=== PATIENT | male | born 1960 | race African-American/Black ===

== ENCOUNTER 2018-09-11 13:35 | Emergency (ER) | payer OTHER ==
[2018-09-11 13:46] VITALS: BMI 26.4
--- NOTE | 2018-09-11 14:01 | PDOC ---
History of Present Illness - General Chief Complaint: Blood Sugar Problem Stated Complaint: Blood Sugar Problem Time Seen by Provider: 09/11/18 13:52 - History of Present Illness Initial Comments: 09/11/18 14:06 The patient is a 58 year old male with a history of HTN, HLD, Prostate CA, Pre- diabetes who presents for evaluation of tingling. The patient notes worsening tingling in his feet and toes over the past few months when eating sugary foods. He states he was concerned that his blood sugars have been high as he is pre-diabetic prompting his presentation to the ED for further evaluation. He otherwise denies fevers, chills, SOB, chest pain, nausea, vomiting, abdominal pain, increased thirst, increased urination, or changes with urination or bowel movements. Past History - Past Medical History Allergies/Adverse Reactions: Allergies Allergy/AdvReac Type Severity Reaction Status Date / Time No Known Allergies Allergy Verified 09/11/18 13:40 Home Medications: Ambulatory Orders Aspirin [ASA -] 81 mg PO DAILY 12/02/12 [place]-3 Acid Ethyl Esters [Lovaza -] 1,000 mg PO BID 03/07/14 Cholecalciferol (Vitamin D3) [D-2000] 1,000 unit PO DAILY 02/12/15 Folic Acid/Mv,Fe,Min [Centrum Multivitamin Tab Chew] 1 each PO DAILY 02/12/15 Ranitidine [Zantac -] 300 mg PO BID PRN 02/12/15 Atorvastatin Calcium 80 mg PO HS 09/11/18 Metoprolol Succinate [Toprol Xl] 50 mg PO DAILY 09/11/18 Cancer: Yes (prostate (rad tx)) Cardiac Disorders: Yes (STENTS X 3) COPD: No Diabetes: Yes (pre diabetic) HTN: Yes Hypercholesterolemia: Yes - Surgical History Cardiac Surgery: Yes (STENTS X 3// OHS 2 vessels) - Suicide/Smoking/Psychosocial Hx Smoking Status: Yes Smoking History: Former smoker Have you smoked in the past 12 months: No Number of Cigarettes Smoked Daily: 10 If you are a former smoker, when did you quit?: 12/2013 Information on smoking cessation initiated: No Hx Alcohol Use: No Review of Systems - Review of Systems Comments:: 09/11/18 14:09 Constitutional: No fevers, chills, fatigue, malaise HEENT: No Rhinorrhea, nasal congestion, visual changes Cardiovascular: No chest pain, syncope, palpitations, lightheadedness Respiratory: No Cough, SOB, Hemoptysis, Gastrointestinal: No Abdominal pain, Nausea, Vomiting, Constipation, Diarrhea, Melena Genitourinary: No Dysuria, Frequency, Urgency, Hesitancy, Hematuria, Flank pain Musculoskeletal: No Myalgia, arthralgia Skin: No rashes, itching, bruising, pallor Neurologic: Tingling. No Headache, Dizziness, Numbness, Weakness, Psychiatric: No Hallucinations. No SI or HI *Physical Exam - Vital Signs Last Vital Signs Temp Pulse Resp BP Pulse Ox 98 F 64 16 110/65 99 09/11/18 13:44 09/11/18 13:44 09/11/18 13:44 09/11/18 13:44 09/11/18 13:44 - Physical Exam Comments: 09/11/18 14:09 General Appearance: Nourished. No Apparent Distress HEENT: EOMI, LIZ. No Pharyngeal Erythema, Tonsillar Exudate, Tonsillar Erythema Neck: No Cervical Lymphadenopathy Respiratory/Chest: Lungs Clear, Normal Breath Sounds. No Crackles, Rales, Rhonchi, Wheezing Cardiovascular: Regular Rhythm, Regular Rate. No Murmur, Gallops, Rubs Gastrointestinal/Abdominal: Normal Bowel Sounds, Soft. No Guarding, Rebound, Tenderness Musculoskeletal: No CVA Tenderness Extremity: Normal Capillary Refill Integumentary: Normal Color, Dry, Warm Neurologic: mechanical manager II-XII NML intact, Fully Oriented, Alert, Normal Mood/Affect, Normal Response, Motor Strength 5/5. ED Treatment Course - LABORATORY CBC & Chemistry Diagram: 09/11/18 14:10 09/11/18 14:10 Medical Decision Making - Medical Decision Making 09/11/18 14:10 The patient is a 58 year old male with a history of HTN, HLD, Prostate CA, Pre- diabetes who presents for evaluation of tingling. Given the patient's history and physical exam, we will obtain a cbc, cmp, ua, to evaluate further. Given the patient's normal physical exam and length of his symptoms, it is unlikely that an acute process is occurring. We will continue to monitor and reassess while here in the ED. 09/11/18 15:17 CBC, cmp, ua are unremarkable. The patient continues to appear well on exam. We are comfortable with discharging the patient home with primary care provider follow up. We discussed the results, plan, and return precautions with the patient who voiced understanding and is agreeable with the plan. *DC/Admit/Observation/Transfer Diagnosis at time of Disposition: Tingling of both feet - Discharge Dispostion Disposition: HOME Condition at time of disposition: Stable Decision to Admit order: No - Referrals Referrals: Ben Conn MD [Primary Care Provider] - - Patient Instructions Printed Discharge Instructions: DI for Hyperglycemia -- Adult Additional Instructions: Please return to the ER if you experience concerning or worsening symptoms including worsening difficulty breathing, weakness, or chest pain. Your lab results were normal here in the ER. Please call to schedule a follow up appointment with your primary care provider within 2-3 days to discuss your ER visit and further management of your symptoms. - Post Discharge Activity
[2018-09-11 14:55] LABS: URINE APPEARANCE CLEAR; URINE BILIRUBIN NEGATIVE (<2.0 mg/dL); URINE COLOR LTYELLOW; URINE GLUCOSE (UA) NEGATIVE (NEGATIVE); URINE KETONE NEGATIVE (NEGATIVE); URINE LEUK ESTERASE NEGATIVE (NEGATIVE); URINE NITRITE NEGATIVE (NEGATIVE); URINE PROTEIN NEGATIVE (NEGATIVE); URINE UROBILINOGEN NEGATIVE mg/dL (0.2-1.0)
[2018-09-11 14:55] LABS: BASO % 0.6 % (0-2.0); EOS % 1.7 % (0-4.5); HEMATOCRIT 41.9 % (35.4-49); HEMOGLOBIN 13.4 GM/dL (11.7-16.9); LYMPH % 27.8 % (8-40); MCH 27.5 pg (25.7-33.7); MEAN CELL VOLUME 86.1 fl (80-96); MEAN PLT VOLUME 7.4 fl (7.5-11.1); MONO % 9.3 % (3.8-10.2); NEUT % 60.6 % (42.8-82.8); PLATELET COUNT 189 K/MM3 (134-434); RBC 4.86 M/mm3 (4.00-5.60); RDW 13.3 % (11.9-15.9); WHITE BLOOD COUNT 5.7 K/mm3 (4.0-10.0)
[2018-09-11 15:09] LABS: ALBUMIN 3.7 g/dl (3.4-5.0); ALK PHOS 89 U/L (45-117); ANION GAP 7 MMOL/L (8-16); BILIRUBIN,TOTAL 0.5 mg/dL (0.2-1); BLOOD UREA NITROGEN 15 mg/dL (7-18); CALCIUM 9.1 mg/dL (8.5-10.1); CHLORIDE 107 mmol/L (98-107); CO2 25 mmol/L (21-32); CREATININE 0.7 mg/dL (0.55-1.3); GLUCOSE,RANDOM 92 mg/dL (74-106); POTASSIUM 4.4 mmol/L (3.5-5.1); SGOT/AST 45 U/L (15-37); SGPT/ALT 40 U/L (13-61); SODIUM 139 mmol/L (136-145); TOT PROT 7.4 g/dl (6.4-8.2)
--- NOTE | 2018-09-11 15:34 | PDOC ---
Attending Attestation - Resident Resident Name: Tunde Matthews - ED Attending Attestation I have performed the following: I have examined & evaluated the patient, The case was reviewed & discussed with the resident, I agree w/resident's findings & plan - HPI HPI: 09/11/18 15:33 Todd Ordaz 54 year old male with a h/o hyperlipidemia, HTN and CAD, DM2, prostate ca presenting with tingling in toes x 2 weeks. Patient reports both of his toes are tingling, but the left lower extremity is worse. Patient notes the tingling begins shortly after eating sugary food. Patient is concerned about his A1C as he had similar symptoms in the past when his A1C was elevated. No trauma. The patient denies chest pain, shortness of breath, headache and dizziness. Denies fever, chills, nausea, vomit, diarrhea and constipation. Denies dysuria, frequency, urgency and hematuria. Allergies: NKA Past surgical history: None reported. Social history: No reported alcohol, drug, or cigarette use. - Physicial Exam PE: 09/11/18 15:34 NAD, well appearing, MMM, nl conjunctiva, anicteric; neck supple. lungs clear, RRR, abdomen soft nontender. GALINDO x4, no focal neuro deficits. No peripheral edema. normal color for ethnicity, WWP. gait stable. - Medical Decision Making 09/11/18 15:32 Vital signs reviewed, wnl. Prior notes reviewed, including admissions, discharges and consultations. laboratory results and imaging reviewed, basic labs and lytes wnl, including normal glucose. UA_normal, no ketones or proteins. ED course: no acute events, remained stable and well appearing. gait stable, no neuro deficits or abnormalities. Discharge: Pt to be discharged in stable condition. Patient and family made aware of impression and plan, return precautions discussed (including but not limited to worsening pain or symptoms), fevers, or signs of infection, chest pain, respiratory distress, inability to tolerate oral intake, dehydration, syncope, or neurologic changes). Follow up with PMD and/or specialist as recommended, follow up information provided, take medications as instructed for duration of time. continue with supportive care, avoid triggers and precipitants. All questions answered to patient's satisfaction and expressed understanding and comfort with this.
[2018-09-11 15:41] VITALS: BP 110/64; PULSE 66; TEMP 98.2
== END 2018-09-11 15:42 | disposition home or self-care (01) ==
LOC: EDBD → JER 13:35
DX: R20.2 Paresthesia of skin (principal); I25.10 Atherosclerotic heart disease of native coronary artery without angina pectoris; I10 Essential (primary) hypertension; Z95.5 Presence of coronary angioplasty implant and graft; E78.5 Hyperlipidemia, unspecified; R73.03 Prediabetes; Z85.46 Personal history of malignant neoplasm of prostate; Z87.891 Personal history of nicotine dependence
CPT/HCPCS: 36415; 80053; 81003; 82962; 85025; 99282-25

== ENCOUNTER 2018-10-10 15:51 | Observation (INO) | payer OTHER ==
[2018-10-10 15:57] VITALS: BMI 28.3
--- NOTE | 2018-10-10 16:01 | PDOC ---
History of Present Illness - General Chief Complaint: Chest Pain Stated Complaint: SOB Time Seen by Provider: 10/10/18 16:00 - History of Present Illness Initial Comments: 10/10/18 16:49 The patient is a 58 year old male with a history of HTN, HLD, Pre-Diabetes, [place] s /p stenting and CABG who presents for evaluation of shortness of breath. The patient reports a 2 week history of worsening shortness of breath on exertion. The patient notes that over the past few days his symptoms have worsened where he is unable to walk up a flight of stairs without becoming short of breath which is unusual for him prompting his presentation to the ED for further evaluation. He otherwise denies fevers, chills, chest pain, nausea, vomiting, abdominal pain, or changes with urination or bowel movements. Past History - Past Medical History Allergies/Adverse Reactions: Allergies Allergy/AdvReac Type Severity Reaction Status Date / Time No Known Allergies Allergy Verified 10/10/18 15:57 Home Medications: Ambulatory Orders Aspirin [ASA -] 81 mg PO DAILY 12/02/12 [place]-3 Acid Ethyl Esters [Lovaza -] 1,000 mg PO BID 03/07/14 Cholecalciferol (Vitamin D3) [D-2000] 1,000 unit PO DAILY 02/12/15 Folic Acid/Mv,Fe,Min [Centrum Multivitamin Tab Chew] 1 each PO DAILY 02/12/15 Ranitidine [Zantac -] 300 mg PO BID PRN 02/12/15 Atorvastatin Calcium 80 mg PO HS 09/11/18 Metoprolol Succinate [Toprol Xl] 50 mg PO DAILY 09/11/18 Silodosin [Rapaflo] 8 mg PO HS 10/10/18 Cancer: Yes (prostate (rad tx)) Cardiac Disorders: Yes (STENTS X 3) COPD: No Diabetes: Yes (pre diabetic) HTN: Yes Hypercholesterolemia: Yes - Surgical History Cardiac Surgery: Yes (STENTS X 3// OHS 2 vessels) - Immunization History Immunization Up to Date: Yes - Suicide/Smoking/Psychosocial Hx Smoking Status: Yes Smoking History: Former smoker Have you smoked in the past 12 months: No Number of Cigarettes Smoked Daily: 10 If you are a former smoker, when did you quit?: 4 years ago Information on smoking cessation initiated: No Hx Alcohol Use: No Drug/Substance Use Hx: No Substance Use Type: None Review of Systems - Review of Systems Comments:: 10/10/18 17:02 Constitutional: No fevers, chills, fatigue, malaise HEENT: No Rhinorrhea, nasal congestion, visual changes Cardiovascular: No chest pain, syncope, palpitations, lightheadedness Respiratory: SOB. Dyspnea on exertion. No Cough, Hemoptysis, Gastrointestinal: No Abdominal pain, Nausea, Vomiting, Constipation, Diarrhea, Melena Genitourinary: No Dysuria, Frequency, Urgency, Hesitancy, Hematuria, Flank pain Musculoskeletal: No Myalgia, arthralgia Skin: No rashes, itching, bruising, pallor Neurologic: No Headache, Dizziness, Numbness, Weakness, or Tingling Psychiatric: No Hallucinations. No SI or HI *Physical Exam - Vital Signs Last Vital Signs Temp Pulse Resp BP Pulse Ox 98.0 F 86 16 118/85 96 10/10/18 15:55 10/10/18 15:55 10/10/18 15:55 10/10/18 15:55 10/10/18 15:55 - Physical Exam Comments: 10/10/18 17:03 General Appearance: Nourished. No Apparent Distress HEENT: No Pharyngeal Erythema, Tonsillar Exudate, Tonsillar Erythema Neck: No Cervical Lymphadenopathy Respiratory/Chest: Lungs Clear, Normal Breath Sounds. No Crackles, Rales, Rhonchi, Wheezing Cardiovascular: Regular Rhythm, Regular Rate. No Murmur, Gallops, Rubs Gastrointestinal/Abdominal: Normal Bowel Sounds, Soft. No Guarding, Rebound, Tenderness Musculoskeletal: No CVA Tenderness Extremity: Normal Capillary Refill Integumentary: Normal Color, Dry, Warm Neurologic: Fully Oriented, Alert, Normal Mood/Affect, Normal Response, Heart Score/ECG Review - History History: Moderately suspicious - Electrocardiogram EKG: Normal - Age Age: 45-65 - Risk Factors Risk Factors Heart Score: Yes Hx Hypercholesterolemia, Yes Hx Hypertension, Yes Positive family hx of cardiac disease Based on the list above the patient has:: >/=3 risk factors or Hx atherosclerotic disease - Troponin Troponin: </= normal limit - Score Heart Score - Total: 4 #1 ECG reviewed & interpreted by me at: 17:03 General ECG Interpretation: Sinus Rhythm, Normal Rate, Normal Intervals, No acute ischemic changes ED Treatment Course - LABORATORY CBC & Chemistry Diagram: 10/10/18 16:35 10/10/18 16:35 Medical Decision Making - Medical Decision Making 10/10/18 17:04 The patient is a 58 year old male with a history of HTN, HLD, Pre-Diabetes, [place] s /p stenting and CABG who presents for evaluation of shortness of breath. Differential includes but is not limited to: ACS, Arrhythmia, Pneumonia, CHF, infectious, metabolic derangement. Given the patient's history and physical exam, we will obtain a cbc, cmp, troponin, bnp, ekg, chest pain to evaluate further. We will continue to monitor and reassess while here in the ED. 10/10/18 18:57 CBC, cmp, troponin, bnp are unremarkable. Chest plain film is unremarkable. Given the patient's cardiac risk factors and new symptoms, we believe he requires observation admission for further monitoring. We discussed the case with Cardiology who have been made aware and will evaluate the patient tomorrow. We discussed the case with the admitting team who accepted the patient for admission. *DC/Admit/Observation/Transfer Diagnosis at time of Disposition: Shortness of breath, Dyspnea on exertion - Discharge Dispostion Condition at time of disposition: Stable Decision to Admit order: Yes - Referrals Referrals: Ben Conn MD [Primary Care Provider] - - Patient Instructions - Post Discharge Activity
--- NOTE | 2018-10-10 16:40 | PDOC ---
Attending Attestation - HPI HPI: 10/10/18 16:56 The patient is a 58 year old male with a significant PMH of hyperlipidemia, hypertension. CAD(3 stents) , [place], diabetes, and prostate ca who presents to the emergency department with chest pain for 2 weeks. The patient reports associated worsening shortness of breath with is chest pain. The patient reports that he felt an onset today when he was walking up some steps today. The patient has normal sinus rhythm of 81. The patient denies any other symptoms or complaints. PCP:Dr. Phan Documentation prepared by Elvia Dumas, acting as associate medical director for Jessica Capone MD. <Elvia Dumas - Last Filed: 10/10/18 16:56> - Physicial Exam PE: 10/10/18 19:16 GENERAL: Well developed, well nourished. Awake and alert. No acute distress. HEENT: Normocephalic, atraumatic. PERRLA, EOMI. No conjunctival pallor. Sclera are non- icteric. Moist mucous membranes. Oropharynx is clear. NECK: Supple. Full ROM. No JVD. Carotid pulses 2+ and symmetric, without bruits. No thyromegaly. No lymphadenopathy. CARDIOVASCULAR: Regular rate and rhythm. No murmurs, rubs, or gallops. Distal pulses are 2+ and symmetric. PULMONARY: No evidence of respiratory distress. Lungs clear to auscultation bilaterally. No wheezing, rales or rhonchi. ABDOMINAL: Soft. Non-tender. Non-distended. No rebound or guarding. No organomegaly. Normoactive bowel sounds. MUSCULOSKELETAL Normal range of motion at all joints. No bony deformities or tenderness. No CVA tenderness. EXTREMITIES: No cyanosis. No clubbing. No edema. No calf tenderness. SKIN: Warm and dry. Normal capillary refill. No rashes. No jaundice. NEUROLOGICAL: Alert, awake, appropriate. Cranial nerves 2-12 intact. Cooperative. Good eye contact. Appropriate mood and affect. Documentation prepared by Jessica Calero, acting as associate medical director for Jessica Capone MD. <Jessica Calero - Last Filed: 10/10/18 19:16> - Resident Resident Name: Tunde Matthews - ED Attending Attestation I have performed the following: I have examined & evaluated the patient, The case was reviewed & discussed with the resident, I agree w/resident's findings & plan, Exceptions are as noted - Medical Decision Making 10/10/18 21:15 pt admitted to telemetry for repeat trop and cards consult <Jessica Capone - Last Filed: 10/10/18 21:26>
[2018-10-10 16:43] LABS: BASO % 0.6 % (0-2.0); EOS % 2.2 % (0-4.5); HEMATOCRIT 40.3 % (35.4-49); HEMOGLOBIN 13.5 GM/dL (11.7-16.9); LYMPH % 20.1 % (8-40); MCH 28.4 pg (25.7-33.7); MCHC 33.4 g/dl (32.0-35.9); MEAN PLT VOLUME 7.4 fl (7.5-11.1); MONO % 12.4 % (3.8-10.2); NEUT % 64.7 % (42.8-82.8); PLATELET COUNT 222 K/MM3 (134-434); RBC 4.74 M/mm3 (4.00-5.60); RDW 13.3 % (11.9-15.9); WHITE BLOOD COUNT 5.2 K/mm3 (4.0-10.0)
[2018-10-10 17:06] LABS: ALBUMIN 3.6 g/dl (3.4-5.0); ALK PHOS 105 U/L (45-117); ANION GAP 8 MMOL/L (8-16); BILIRUBIN,TOTAL 0.4 mg/dL (0.2-1); BLOOD UREA NITROGEN 11 mg/dL (7-18); CHLORIDE 108 mmol/L (98-107); CO2 25 mmol/L (21-32); CREATININE 1.1 mg/dL (0.55-1.3); GLUCOSE,RANDOM 96 mg/dL (74-106); N-TERMINAL BNP 34.1 pg/ml (5-125); POTASSIUM 3.9 mmol/L (3.5-5.1); SGOT/AST 22 U/L (15-37); SGPT/ALT 34 U/L (13-61); SODIUM 142 mmol/L (136-145); TOT PROT 7.2 g/dl (6.4-8.2)
[2018-10-10] MEDS ORDERED: ACETAMINOPHEN 325 MG TABLET (FP) PO PRN (18:08)
--- NOTE | 2018-10-10 18:17 | HP ---
Admitting History and Physical - Primary Care Physician PCP: Ben Conn - Admission Chief Complaint: I'm short of breath History of Present Illness: Mr Ordaz is a pleasant 58 year old male who comes in with dyspnea on exertion. He began to notice it about 2 weeks ago and it has steadily progressed. He says over the past 2-3 days he will take only a few steps before becoming short of breath. He has diaphoresis associated with it. He also has minimal lightheadedness. He denies fevers, chills, passing out, chest pain or pressure, fluttering, palpitations, shortness of breath at rest, cough, nausea, vomiting, abdominal pain, diarrhea, constipation, difficulty or pain on urination, or swelling. History Source: Patient Limitations to Obtaining History: No Limitations - Past Medical History Cardiovascular: Yes: CAD, Hyperlipdemia Renal/: Yes: Cancer (prostate) - Past Surgical History Past Surgical History: Yes: CABG - Smoking History Smoking history: Former smoker Have you smoked in the past 12 months: No Aproximately how many cigarettes per day: 10 If you are a former smoker, when did you quit?: 4 years ago - Alcohol/Substance Use Hx Alcohol Use: No History of Substance Use: reports: None - Social History ADL: Independent History of Recent Travel: No Home Medications - Allergies Allergies/Adverse Reactions: Allergies Allergy/AdvReac Type Severity Reaction Status Date / Time No Known Allergies Allergy Verified 10/10/18 15:57 - Home Medications Home Medications: Ambulatory Orders Aspirin [ASA -] 81 mg PO DAILY 12/02/12 [place]-3 Acid Ethyl Esters [Lovaza -] 1,000 mg PO BID 03/07/14 Cholecalciferol (Vitamin D3) [D-2000] 1,000 unit PO DAILY 02/12/15 Folic Acid/Mv,Fe,Min [Centrum Multivitamin Tab Chew] 1 each PO DAILY 02/12/15 Ranitidine [Zantac -] 300 mg PO BID PRN 02/12/15 Atorvastatin Calcium 80 mg PO HS 09/11/18 Metoprolol Succinate [Toprol Xl] 50 mg PO DAILY 09/11/18 Silodosin [Rapaflo] 8 mg PO HS 10/10/18 Family Disease History - Family Disease History Family Disease History: Diabetes: Brother, CA: Brother Review of Systems Findings/Remarks: Full review of systems obtained, as per HPI and otherwise negative Physical Examination Vital Signs: Vital Signs Temperature 36.7 C 10/10/18 15:55 Pulse Rate 86 10/10/18 15:55 Respiratory Rate 16 10/10/18 15:55 Blood Pressure 118/85 10/10/18 15:55 O2 Sat by Pulse Oximetry (%) 96 10/10/18 16:04 Constitutional: Yes: Well Nourished, No Distress, Calm Eyes: Yes: Conjunctiva Clear, EOM Intact, PERRL HENT: Yes: Atraumatic, Normocephalic Cardiovascular: Yes: Regular Rate and Rhythm. No: Gallop, Murmur, Rub Respiratory: Yes: Regular, CTA Bilaterally. No: Rales, Rhonchi, Wheezes Gastrointestinal: Yes: Normal Bowel Sounds, Soft. No: Distention, Tenderness Extremities: Yes: WNL Edema: No Labs: CBC, BMP 10/10/18 16:35 10/10/18 16:35 Imaging - Results Chest X-ray: Report Reviewed, Image Reviewed EKG: Image Reviewed Problem List - Problems (1) Dyspnea on exertion Assessment/Plan: -unclear source as work up currently normal -admit to telemetry observation -monitor rhythm with activity -cardiac enzymes x3 for possible anginal equivalent -no wheezing or lung sounds to suggest lung pathology -check d-dimer -if positive, CTA chest -consult cardiology and pulmonary -last ECHO 6 months ago, defer to cardiology if needs repeat but no signs of fluid retention Code(s): R06.09 - OTHER FORMS OF DYSPNEA (2) CAD (coronary artery disease) Assessment/Plan: -continue metoprolol -continue aspirin -continue atorvastatin Code(s): I25.10 - ATHSCL HEART DISEASE OF [place] CORONARY ARTERY W/O ANG PCTRS (3) HLD (hyperlipidemia) Assessment/Plan: -continue atorvastatin Code(s): E78.5 - HYPERLIPIDEMIA, UNSPECIFIED Assessment/Plan Dispo -plan for discharge tomorrow
--- NOTE | 2018-10-10 18:46 | CON.CARD ---
Consult Consult Specialty:: Cardiology - History of Present Illness Chief Complaint: cp/palpitations History of Present Illness: The patient is a 58 year old male with a significant PMH of hyperlipidemia, hypertension. CAD(3 stents), CABG , [place], diabetes, and prostate ca who presents to the emergency department with chest pain for 2 weeks. The patient reports associated worsening shortness of breath with is chest pain. The patient reports that he felt an onset today when he was walking up some steps today. The patient has normal sinus rhythm of 81. The patient denies any other symptoms or complaints. PMH Prostate CA diagnosed 2018 "mild COPD"/"mild" asthma (sees Dr. Ocasio) CAD (? s/p septal and apical [place]): mid-LCx and distal RCA stents 09/28; mid- LCx JEREMIAH 02/15/09 S/p CABG 09/08/2016 chronic Rt knee and hip pain GERD HTN hx [place] Spotted Fever several years ago (treated) hyperlipidemia Mild-moderate bilateral carotid artery diffuse intimal thickening (01/29) ECHO January 2018 1. The left ventricular size is normal. 2. Overall left ventricular systolic function is normal with, an EF between 60 - 65 %. 3. Mitral Doppler inflow pattern suggests diastolic filling abnormality. 4. Septal wall motion is delayed and consistent with prior cardiac surgery. 5. Mild septal hypertrophy. 6. The left atrium is moderately dilated. 7. The right atrium is moderately enlarged. 8. Aortic valve is trileaflet and is moderately calcified. 9. There is moderate aortic regurgitation. 10. The mitral valve leaflets are mildly thickened. 11. Moderate mitral regurgitation is present. 12. Moderate tricuspid regurgitation presen with a right ventricle systolic pressure of 32 mmHg, indicative of mild pulmonary hypertension. 13. Trace pulmonic valve regurgitation. - Past Medical History Cardio/Vascular: Yes: CAD, Hyperlipdemia Renal/: Yes: Cancer (prostate) - Past Surgical History Past Surgical History: Yes: CABG - Alcohol/Substance Use Hx Alcohol Use: No History of Substance Use: reports: None - Smoking History Smoking history: Former smoker Have you smoked in the past 12 months: No Aproximately how many cigarettes per day: 10 If you are a former smoker, when did you quit?: 4 years ago - Social History ADL: Independent History of Recent Travel: No Home Medications - Allergies Allergies/Adverse Reactions: Allergies Allergy/AdvReac Type Severity Reaction Status Date / Time No Known Allergies Allergy Verified 10/10/18 15:57 - Home Medications Home Medications: Ambulatory Orders Aspirin [ASA -] 81 mg PO DAILY 12/02/12 [place]-3 Acid Ethyl Esters [Lovaza -] 1,000 mg PO BID 03/07/14 Cholecalciferol (Vitamin D3) [D-2000] 1,000 unit PO DAILY 02/12/15 Folic Acid/Mv,Fe,Min [Centrum Multivitamin Tab Chew] 1 each PO DAILY 02/12/15 Ranitidine [Zantac -] 300 mg PO BID PRN 02/12/15 Atorvastatin Calcium 80 mg PO HS 09/11/18 Metoprolol Succinate [Toprol Xl] 50 mg PO DAILY 09/11/18 Silodosin [Rapaflo] 8 mg PO HS 10/10/18 Family Disease History - Family Disease History Family Disease History: Diabetes: Brother, CA: Brother Review of Systems - Review of Systems Constitutional: reports: No Symptoms Eyes: reports: No Symptoms HENT: reports: No Symptoms Neck: reports: No Symptoms Cardiovascular: reports: Chest Pain, Palpitations Gastrointestinal: reports: No Symptoms Genitourinary: reports: No Symptoms Breasts: reports: No Symptoms Reported Musculoskeletal: reports: No Symptoms Integumentary: reports: No Symptoms Neurological: reports: No Symptoms Endocrine: reports: No Symptoms Hematology/Lymphatic: reports: No Symptoms Psychiatric: reports: No Symptoms Vital Signs: Vital Signs Temperature 98.0 F 10/10/18 15:55 Pulse Rate 86 10/10/18 15:55 Respiratory Rate 16 10/10/18 15:55 Blood Pressure 118/85 10/10/18 15:55 O2 Sat by Pulse Oximetry (%) 96 10/10/18 16:04 Constitutional: Yes: Well Nourished, No Distress, Calm Eyes: Yes: WNL, Conjunctiva Clear, EOM Intact HENT: Yes: WNL, Atraumatic, Normocephalic Neck: Yes: WNL, Supple, Trachea Midline Respiratory: Yes: WNL, Regular, CTA Bilaterally Gastrointestinal: Yes: WNL, Normal Bowel Sounds Renal/: Yes: WNL Cardiovascular: Yes: WNL, Regular Rate and Rhythm Musculoskeletal: Yes: WNL Extremities: Yes: WNL Integumentary: Yes: WNL Neurological: Yes: WNL, Alert, Oriented ...Motor Strength: WNL Psychiatric: Yes: WNL, Alert, Oriented - Other Data Labs, Other Data: CBC, BMP 10/10/18 16:35 10/10/18 16:35 Troponin, BNP 10/10/18 16:35 Troponin I < 0.02 B-Natriuretic Peptide 34.1 Troponin, BNP 10/10/18 16:35 Troponin I < 0.02 B-Natriuretic Peptide 34.1 Imaging - Results Chest X-ray: Image Reviewed (s/p OHS no i/e) EKG: Image Reviewed (sr wnl) Problem List - Problems (1) CAD (coronary artery disease) Code(s): I25.10 - ATHSCL HEART DISEASE OF [place] CORONARY ARTERY W/O ANG PCTRS (2) Dyspnea on exertion Code(s): R06.09 - OTHER FORMS OF DYSPNEA (3) FH: CABG (coronary artery bypass surgery) Code(s): Z82.49 - FAMILY HX OF ISCHEM HEART DIS AND OTH DIS OF THE [place] SYS (4) HLD (hyperlipidemia) Code(s): E78.5 - HYPERLIPIDEMIA, UNSPECIFIED (5) Hx of CABG Code(s): Z95.1 - PRESENCE OF AORTOCORONARY BYPASS GRAFT (6) Prostate CA Code(s): C61 - MALIGNANT NEOPLASM OF PROSTATE (7) Shortness of breath Code(s): R06.02 - SHORTNESS OF BREATH (8) Dyspnea and respiratory abnormalities Code(s): R06.00 - DYSPNEA, UNSPECIFIED; R06.89 - OTHER ABNORMALITIES OF BREATHING (9) Tingling of both feet Code(s): R20.2 - PARESTHESIA OF SKIN Assessment/Plan Hyperlipidemia, hypertension. CAD(3 stents), CABG , [place], diabetes, and prostate ca who presents to the emergency department with atypical chest pain ? palpitations for 2 weeks. r/o mi neg ekg wnl Plan EST to risk stratify keep ldl below 70 cont med rx
[2018-10-10] MEDS ORDERED: TAMSULOSIN HCL 0.4 MG CAP PO SCH (22:00)
[2018-10-10] MEDS ORDERED: ATORVASTATIN CA 80 MG TABLET (FP) PO SCH (22:00)
[2018-10-11 06:54] LABS: BASO % 0.5 % (0-2.0); HEMATOCRIT 38.2 % (35.4-49); HEMOGLOBIN 12.4 GM/dL (11.7-16.9); MCH 27.8 pg (25.7-33.7); MCHC 32.5 g/dl (32.0-35.9); MEAN CELL VOLUME 85.5 fl (80-96); MEAN PLT VOLUME 7.7 fl (7.5-11.1); MONO % 13.5 % (3.8-10.2); PLATELET COUNT 187 K/MM3 (134-434); RBC 4.46 M/mm3 (4.00-5.60); RDW 13.3 % (11.9-15.9); WHITE BLOOD COUNT 4.7 K/mm3 (4.0-10.0)
[2018-10-11 07:30] LABS: ANION GAP 7 MMOL/L (8-16); BLOOD UREA NITROGEN 14 mg/dL (7-18); CALCIUM 8.7 mg/dL (8.5-10.1); CHLORIDE 106 mmol/L (98-107); CO2 27 mmol/L (21-32); CREATININE 0.8 mg/dL (0.55-1.3); GLUCOSE,RANDOM 98 mg/dL (74-106); MAGNESIUM 2.3 mg/dL (1.8-2.4); PHOSPHOROUS 3.4 mg/dL (2.5-4.9); SODIUM 139 mmol/L (136-145)
[2018-10-11] MEDS ORDERED: MULTIVITAMINS (DAILY MVI) TABLET (FP) PO SCH (10:00)
[2018-10-11] MEDS ORDERED: ASPIRIN 81 MG CHEWABLE TABLETS PO SCH (10:00)
[2018-10-11] MEDS ORDERED: CHOLECALCIFEROL (VITAMIN D3) 1,000 UNIT TABLET (FP) PO SCH (10:00)
--- NOTE | 2018-10-11 11:31 | PN ---
Progress Note (short form) - Note Progress Note: PULMONARY CONSULTATION DICTATED 10/11/18 IMP DYSPNEA ON EXERTION ? CARDIAC,? UNDERLYING COPD ASHD S/P CABG PROSTATE CA S/P RT HLD PLAN CARDIAC W/U IN PROGRESS PFTS OUTPATIENT LOW DOSE CHEST CT FO LUNG CANCER SCREENING DR CAMEJO Problem List - Problems (1) Prostate CA Code(s): C61 - MALIGNANT NEOPLASM OF PROSTATE (2) CAD (coronary artery disease) Code(s): I25.10 - ATHSCL HEART DISEASE OF [place] CORONARY ARTERY W/O ANG PCTRS (3) Dyspnea on exertion Code(s): R06.09 - OTHER FORMS OF DYSPNEA (4) HLD (hyperlipidemia) Code(s): E78.5 - HYPERLIPIDEMIA, UNSPECIFIED (5) Shortness of breath Code(s): R06.02 - SHORTNESS OF BREATH (6) Hx of CABG Code(s): Z95.1 - PRESENCE OF AORTOCORONARY BYPASS GRAFT
--- NOTE | 2018-10-11 12:29 | CONS ---
DATE OF CONSULTATION: 10/11/2018 REFERRING PHYSICIAN: Michael Mcqueen MD HISTORY: The patient is a 58-year-old black male with past medical history of ASHD status post CABG 2 years ago, prostate cancer status post radiation therapy completed 2 months ago, hyperlipidemia, history of tobacco use approximately 1 pack per day for 30 years quit 4 years ago admitted to [facility] with a [id number] of increasing shortness of breath with exertion. The patient states that approximately 2 weeks ago he started noticing increasing shortness of breath. He states he would be ambulating and would feel short of breath and have to stop before proceeding. Over the past few days, walking a few steps he gets very dyspneic and has occasional episodes of chest pressure associated with exertion, which was relieved after stopping and resting. He denies any cough or hemoptysis. Denies any fever or chills. Denies any weight loss or night sweats. He denies any bronchospasm. He also states that he had an episode of diaphoresis associated with the shortness of breath. Also yesterday when ambulating he felt some discomfort in his left arm, and he says for the past 2 weeks his legs have been feeling weak. 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 PAST MEDICAL HISTORY: Again, includes ASHD status post CABG, status post prostate cancer status post radiation therapy, hyperlipidemia. SOCIAL HISTORY: Positive tobacco. Quit 4 years ago. One pack per day for 30 years. REVIEW OF SYSTEMS: No orthopnea, no PND, no chest pain, no cough, no hemoptysis, no abdominal pain, no lower extremity edema. Positive dyspnea on exertion, positive chest pressure, positive left arm discomfort. CURRENT MEDICATIONS: Prior to admission include aspirin, Lovaza, cholecalciferol, folic acid, Zantac, Lipitor, metoprolol, and Rapaflo. Current medications include Flomax, Tylenol, Toprol XL, Lipitor, , aspirin, vitamin D3. PHYSICAL EXAMINATION: General: The patient is a well-developed, well-nourished male awake and alert in no acute distress. Vital Signs: He is afebrile. Blood pressure 123/72, respiratory rate 20, O2 saturation 98% on room air. HEENT: Normocephalic and atraumatic. Neck: Supple. Heart: Regular S1, S2. Chest: Clear. Abdomen: Soft. Bowel sounds positive. Extremities: No cyanosis or edema. LABORATORIES: WBC 4.7, hemoglobin 12.4, hematocrit 38.2, and platelet count 187,000. D-dimer is 270, BUN 14, creatinine 0.8, troponin 0.02. Chest x-ray: Well expanded lungs, atelectatic changes left base. IMPRESSION: 1. Dyspnea on exertion, rule out possible cardiac in view of his arteriosclerotic heart disease and resolution in symptoms with rest. 2. Underlying chronic obstructive pulmonary disease in view of longstanding history of tobacco use. 3. Arteriosclerotic heart disease status post coronary artery bypass graft. 4. Hyperlipidemia. PLAN: Cardiac workup per Cardiology. Pulmonary function tests as an outpatient. Also low-dose CT scan of the chest lung cancer screening in view of the patient's longstanding history of tobacco abuse. Continue telemetry monitoring. Treva [id number]
--- NOTE | 2018-10-11 13:44 | PN ---
Progress Note, Physician History of Present Illness: The patient is a 58 year old male with a significant PMH of hyperlipidemia, hypertension. CAD(3 stents), CABG , [place], diabetes, and prostate ca who presents to the emergency department with chest pain for 2 weeks. The patient reports associated worsening shortness of breath with is chest pain. The patient reports that he felt an onset today when he was walking up some steps today. The patient has normal sinus rhythm of 81. The patient denies any other symptoms or complaints. PMH Prostate CA diagnosed 2018 "mild COPD"/"mild" asthma (sees Dr. Ocasio) CAD (? s/p septal and apical [place]): mid-LCx and distal RCA stents 09/28; mid- LCx JEREMIAH 02/15/09 S/p CABG 09/08/2016 chronic Rt knee and hip pain GERD HTN hx [place] Spotted Fever several years ago (treated) hyperlipidemia Mild-moderate bilateral carotid artery diffuse intimal thickening (01/29) ECHO January 2018 1. The left ventricular size is normal. 2. Overall left ventricular systolic function is normal with, an EF between 60 - 65 %. 3. Mitral Doppler inflow pattern suggests diastolic filling abnormality. 4. Septal wall motion is delayed and consistent with prior cardiac surgery. 5. Mild septal hypertrophy. 6. The left atrium is moderately dilated. 7. The right atrium is moderately enlarged. 8. Aortic valve is trileaflet and is moderately calcified. 9. There is moderate aortic regurgitation. 10. The mitral valve leaflets are mildly thickened. 11. Moderate mitral regurgitation is present. 12. Moderate tricuspid regurgitation presen with a right ventricle systolic pressure of 32 mmHg, indicative of mild pulmonary hypertension. 13. Trace pulmonic valve regurgitation. - Current Medication List Current Medications: Active Medications Acetaminophen (Tylenol -) 650 mg PO Q4H PRN PRN Reason: FEVER Aspirin (Asa -) 81 mg PO DAILY COUNT INCLUDES THE [facility] Last Admin: 10/11/18 09:32 Dose: 81 mg Atorvastatin Calcium (Lipitor -) 80 mg PO HS COUNT INCLUDES THE [facility] Last Admin: 10/10/18 21:02 Dose: 80 mg Cholecalciferol (Vitamin D3 -) 1,000 unit PO DAILY COUNT INCLUDES THE [facility] Last Admin: 10/11/18 09:32 Dose: 1,000 unit Metoprolol Succinate (Toprol Xl -) 50 mg PO DAILY COUNT INCLUDES THE [facility] Last Admin: 10/11/18 09:32 Dose: 50 mg Multivitamins/Minerals/Vitamin C (Tab-A-Vit -) 1 tab PO DAILY COUNT INCLUDES THE [facility] Last Admin: 10/11/18 09:32 Dose: 1 tab Tamsulosin HCl (Flomax -) 0.4 mg PO HS COUNT INCLUDES THE [facility] Last Admin: 10/10/18 21:03 Dose: 0.4 mg - Objective Vital Signs: Vital Signs Temperature 98.1 F 10/11/18 08:02 Pulse Rate 82 10/11/18 08:02 Respiratory Rate 20 10/11/18 08:02 Blood Pressure 123/73 10/11/18 08:02 O2 Sat by Pulse Oximetry (%) 98 10/11/18 10:00 Eyes: Yes: WNL, Conjunctiva Clear, EOM Intact HENT: Yes: WNL, Atraumatic, Normocephalic Neck: Yes: WNL, Supple, Trachea Midline Cardiovascular: Yes: WNL, Regular Rate and Rhythm Respiratory: Yes: WNL, Regular, CTA Bilaterally Gastrointestinal: Yes: WNL, Normal Bowel Sounds Genitourinary: Yes: WNL Musculoskeletal: Yes: WNL Extremities: Yes: WNL Edema: No Integumentary: Yes: WNL Neurological: Yes: WNL, Alert, Oriented ...Motor Strength: WNL Psychiatric: Yes: WNL Labs: CBC, BMP 10/11/18 05:30 10/11/18 05:30 Problem List - Problems (1) CAD (coronary artery disease) Code(s): I25.10 - ATHSCL HEART DISEASE OF [place] CORONARY ARTERY W/O ANG PCTRS (2) Dyspnea on exertion Code(s): R06.09 - OTHER FORMS OF DYSPNEA (3) FH: CABG (coronary artery bypass surgery) Code(s): Z82.49 - FAMILY HX OF ISCHEM HEART DIS AND OTH DIS OF THE [facility] SYS (4) HLD (hyperlipidemia) Code(s): E78.5 - HYPERLIPIDEMIA, UNSPECIFIED (5) Hx of CABG Code(s): Z95.1 - PRESENCE OF AORTOCORONARY BYPASS GRAFT (6) Prostate CA Code(s): C61 - MALIGNANT NEOPLASM OF PROSTATE (7) Shortness of breath Code(s): R06.02 - SHORTNESS OF BREATH (8) Dyspnea and respiratory abnormalities Code(s): R06.00 - DYSPNEA, UNSPECIFIED; R06.89 - OTHER ABNORMALITIES OF BREATHING (9) Tingling of both feet Code(s): R20.2 - PARESTHESIA OF SKIN Assessment/Plan Hyperlipidemia, hypertension. CAD(3 stents), CABG , [place], diabetes, and prostate ca who presents to the emergency department with atypical chest pain ? palpitations for 2 weeks. r/o mi neg ekg wnl Plan EST to risk stratify keep ldl below 70 cont med rx
[2018-10-11 15:26] VITALS: BP 96/65; PULSE 78; TEMP 98.7
--- NOTE | 2018-10-11 15:28 | TRE ---
Protocol Name : MALU Max Work Load (METS*10) : 101 Time In Exercise Phase : 00:09:00 Max. Systolic BP : 164 mmHg Max Diastolic BP : 74 mmHg Max Heart Rate : 144 BPM Max Predicted Heart Rate : 160 BPM Attending Physician : DR. SOSA Reason For Termination : Target Heart Rate Achieved Reason for Test : Dyspnea Stress Protocol : MALU Rest HR : 85 BPM PeakEx METs : 10.1 METS Arrhythmias : Atrial Premature Beats, Isolated Resting ECG : Normal Recovery ECG Response (OLD) : Overall Impression : Normal stress test Chest Pain : No Chest Pain HR Response To Exercise : Normal Overall HR Response To Exercise BP Response To Exercise : Normal Resting BP with Appropriate Response Functional Capacity : Above Average (> 20%) Diagnosis : 1. NEGATIVE STRESS TEST 2. APPROPRIATE BLLOD PRESSURE RESPONSE. PATIENT EXERCISED 9 MIN INTO STAGE 3 MALU AND ACHIEVED 90% OF MPTHR 3. OCCASIONAL PVCS AND APCS 4. FAIR EXERCISE TOLERANCE AND CAPACITY Confirmed by IAN TOMLINSON, DERECK ([id number]) on 10/11/2018 3:27:34 PM
--- NOTE | 2018-10-11 15:46 | DS ---
Physical Examination Vital Signs: Vital Signs Temperature 37.1 C 10/11/18 14:00 Pulse Rate 78 10/11/18 14:00 Respiratory Rate 20 10/11/18 14:00 Blood Pressure 96/65 10/11/18 14:00 O2 Sat by Pulse Oximetry (%) 98 10/11/18 10:00 Constitutional: Yes: Well Nourished, No Distress, Calm Cardiovascular: Yes: Regular Rate and Rhythm. No: Gallop, Murmur, Rub Respiratory: Yes: Regular, CTA Bilaterally. No: Rales, Rhonchi, Wheezes Gastrointestinal: Yes: Normal Bowel Sounds, Soft. No: Distention, Tenderness Extremities: Yes: WNL Edema: No Labs: CBC, BMP 10/11/18 05:30 10/11/18 05:30 Discharge Summary Reason For Visit: SOB,DYSPNEA ON EXERTION Current Active Problems CAD (coronary artery disease) (Acute) Dyspnea on exertion (Acute) FH: CABG (coronary artery bypass surgery) (Acute) HLD (hyperlipidemia) (Acute) Hx of CABG (Acute) Prostate CA (Acute) Shortness of breath (Acute) Hospital Course: (1) Dyspnea on exertion Code(s): R06.09 - OTHER FORMS OF DYSPNEA (2) CAD (coronary artery disease) Code(s): I25.10 - ATHSCL HEART DISEASE OF [place] CORONARY ARTERY W/O ANG PCTRS (3) HLD (hyperlipidemia) Code(s): E78.5 - HYPERLIPIDEMIA, UNSPECIFIED Mr Ordaz is a pleasant 58 year old male who comes in with dyspnea on exertion. He was admitted to telemetry under observation. Cardiac enzymes x3 were checked and negative. His chest x-ray, BNP, and d-dimer were all normal. He was seen by cardiology and had an EST which was normal. He was seen by pulmonary and cleared. He is currently stable for discharge home with close follow up. Condition: Stable - Instructions Diet, Activity, Other Instructions: resume previous diet and activity Referrals: Ben Conn MD [Primary Care Provider] - Eldon Ward MD [Staff Physician] - Davion Baxter MD [Staff Physician] - Disposition: HOME - Home Medications Comprehensive Discharge Medication List: Ambulatory Orders Aspirin [ASA -] 81 mg PO DAILY 12/02/12 [place]-3 Acid Ethyl Esters [Lovaza -] 1,000 mg PO BID 03/07/14 Cholecalciferol (Vitamin D3) [D3-2000] 1,000 unit PO DAILY 02/12/15 Folic Acid/Mv,Fe,Min [Centrum Multivitamin Tab Chew] 1 each PO DAILY 02/12/15 Ranitidine [Zantac -] 300 mg PO BID PRN 02/12/15 Atorvastatin Calcium 80 mg PO HS 09/11/18 Metoprolol Succinate [Toprol Xl] 50 mg PO DAILY 09/11/18 Silodosin [Rapaflo] 8 mg PO HS 10/10/18
--- NOTE | 2018-10-11 18:30 | EKG ---
Test Reason : Blood Pressure : / mmHG Vent. Rate : 081 BPM Atrial Rate : 081 BPM P-R Int : 176 ms QRS Dur : 100 ms QT Int : 364 ms P-R-T Axes : 051 066 060 degrees QTc Int : 422 ms NORMAL SINUS RHYTHM NORMAL ECG WHEN COMPARED WITH ECG OF 12-FEB-2015 11:48, VENT. RATE HAS INCREASED BY 30 BPM Confirmed by DERECK SOSA MD [id number]) on 10/11/2018 6:30:03 PM Referred By: Confirmed By:DERECK SOSA MD
== END 2018-10-11 16:54 | disposition home or self-care (01) ==
LOC: JER 15:51 → JERBED 18:08 → J4W 19:22
PROVIDERS: ADMIT Internal Medicine; ATTEND Internal Medicine
DX: R06.02 Shortness of breath (principal); R06.00 Dyspnea, unspecified; I10 Essential (primary) hypertension; E78.5 Hyperlipidemia, unspecified; R73.03 Prediabetes; R20.2 Paresthesia of skin; I25.2 Old myocardial infarction; I25.10 Atherosclerotic heart disease of native coronary artery without angina pectoris; C61 Malignant neoplasm of prostate; Z87.891 Personal history of nicotine dependence; Z92.3 Personal history of irradiation; Z79.82 Long term (current) use of aspirin; Z95.5 Presence of coronary angioplasty implant and graft; Z95.1 Presence of aortocoronary bypass graft
CPT/HCPCS: 36415; 71046-TC-FY; 80048; 80053; 82550; 82553; 83735; 83880; 84100; 84484; 85025; 85379; 93005; 93010; 93017; 93018; 99285-25; G0378

== ENCOUNTER 2019-10-19 09:38 | Observation (INO) | payer OTHER ==
[2019-10-19] MEDS ORDERED: ASPIRIN 81 MG CHEWABLE TABLETS PO ONE (10:29)
--- NOTE | 2019-10-19 10:29 | PDOC ---
History of Present Illness - General Chief Complaint: Shortness of Breath Stated Complaint: SOB,NUMBNESS Time Seen by Provider: 10/19/19 10:29 History Source: Patient Exam Limitations: No Limitations - History of Present Illness Initial Comments: Todd Ordaz is a 59 yo M w a hx HTN, HLD, RASHEED (3 stents), CABG 09/08/16, NIDDM, Prostate Ca, Chronic knee pain, and GERD who presents to the [facility] er with on and off left sided chest pain associated with SOB for the past 2 days. He states the chest discomfort occasionally radiates down his left arm but he is not feeling the pain at the present time. The patient is not sure if the pain is worsened with physical activity. He denies any nausea, vomiting, or diaphoresis. He had an ECHO in january 2018 which suggested a diastolic filling abnormality, mild septal hypertrophy, left and right atrial dilatation, aortic regurg, thickened mitral valves, calcified aortic valves, Mitral + tricuspid + pulm regurg, and Pulm HTN. His stress EKG at the time was unremarkable. Denies recent travel, cough, hemoptysis, hormone usage, personal or family hx of blood clots, cancer in the past 6 months, recent fevers, chills, or infections. PCP: Ben Conn Allergies: NKA, NKDA PSH: Stents, CABG Social hx: Denies smoking, drinking, or other substance abuse Past History - Past Medical History Allergies/Adverse Reactions: Allergies Allergy/AdvReac Type Severity Reaction Status Date / Time No Known Allergies Allergy Verified 10/19/19 09:46 Home Medications: Ambulatory Orders Aspirin [ASA -] 81 mg PO DAILY 12/02/12 [place]-3 Acid Ethyl Esters [Lovaza -] 1,000 mg PO BID 03/07/14 Cholecalciferol (Vitamin D3) [D3-2000] 1,000 unit PO DAILY 02/12/15 Folic Acid/Mv,Fe,Min [Centrum Multivitamin Tab Chew] 1 each PO DAILY 02/12/15 Ranitidine [Zantac -] 300 mg PO BID PRN 02/12/15 Atorvastatin Calcium 80 mg PO HS 09/11/18 Metoprolol Succinate [Toprol Xl] 50 mg PO DAILY 09/11/18 Silodosin [Rapaflo] 8 mg PO HS 10/10/18 Cancer: Yes (prostate (rad tx)) Cardiac Disorders: Yes (STENTS X 3) COPD: No Diabetes: Yes (pre diabetic) HTN: Yes Hypercholesterolemia: Yes - Surgical History Cardiac Surgery: Yes (STENTS X 3// OHS 2 vessels) - Immunization History Immunization Up to Date: Yes - Psycho Social/Smoking Cessation Hx Smoking Status: Yes Smoking History: Never smoked Have you smoked in the past 12 months: No Number of Cigarettes Smoked Daily: 10 If you are a former smoker, when did you quit?: 4 years ago Information on smoking cessation initiated: No Hx Alcohol Use: No Drug/Substance Use Hx: No Substance Use Type: None Review of Systems - Review of Systems Able to Perform ROS?: Yes Comments:: CONSTITUTIONAL: Absent: fever, no chills, no fatigue EYES: Absent: visual changes ENT: Absent: ear pain, no sore throat CARDIOVASCULAR: Present: Chest pain Absent: no palpitations RESPIRATORY: Present: SOB Absent: cough GI: Absent: abdominal pain, no nausea, no vomiting, no constipation, no diarrhea GENITOURINARY: Absent: dysuria, no frequency, no hematuria MUSKULOSKELETAL: Absent: back pain, no arthralgia, no myalgia SKIN: Absent: rash NEURO: Absent: headache *Physical Exam - Vital Signs Last Vital Signs Temp Pulse Resp BP Pulse Ox 97.9 F 58 L 20 131/70 98 10/19/19 16:30 10/19/19 16:30 10/19/19 16:50 10/19/19 16:30 10/19/19 16:50 - Physical Exam Comments: GENERAL: Well-appearing, well-nourished. No apparent distress. HEENT: Normocephalic, atraumatic. PERRL, EOM intact. CARDIOVASCULAR: Bradycardic rate. Regular rhythm. PULMONARY: No evidence of respiratory distress. Lungs clear to auscultation bilaterally. No wheezing, rales or rhonchi. ABDOMEN: Soft, non-distended, non-tender. EXTREMITIES: Normal ROM in all four extremities. No gross deformities. SKIN: Warm, dry. No rash NEUROLOGICAL: No focal neurological deficits. Heart Score/ECG Review - History History: Moderately suspicious - Electrocardiogram EKG: Normal - Age Age: 45-65 - Risk Factors Risk Factors Heart Score: Yes Hx Hypercholesterolemia, Yes Hx Hypertension, Yes Hx Diabetes, Yes Positive family hx of cardiac disease Based on the list above the patient has:: >/=3 risk factors or Hx atherosclerotic disease - Troponin Troponin: </= normal limit - Score Heart Score - Total: 4 - ECG Intrepretation Rhythm: Regular Rhythm - [place]: Normal - P and ME Atrial Enlargement: Left Prominent R with upright T in V1 (true posterior OK): No Delta Wave(s) Present: No WPW: No - QRS Poor R Wave Progression: No Q Wave Present: No - ST and T Early Repolarization: No Non Specific ST-T Wave changes: No Flattened T Waves: No Prolonged Q-T Interval: No - ECG Impressions Normal ECG: No Non-specific ST Elevation: No Ischemic Changes: Yes Acute Myocardial Infarction: Anterior (Age undetermined) Bradycardia: Yes Torsades vira Pointes: No WPW: No ED Treatment Course - LABORATORY CBC & Chemistry Diagram: 10/19/19 10:40 10/19/19 10:40 - ADDITIONAL ORDERS Additional order review: Laboratory Results 10/19/19 10/19/19 10/19/19 10:40 10:40 10:40 PT with INR INR PTT (Actin FS) Sodium 139 Potassium 4.0 Chloride 108 H Carbon Dioxide 27 Anion Gap 4 L BUN 11.5 Creatinine 0.8 Est GFR (CKD-EPI)AfAm 111.74 Est GFR (CKD-EPI)NonAf 96.41 Random Glucose 93 Calcium 9.1 Magnesium 2.4 Total Bilirubin 0.6 AST 22 ALT 39 Alkaline Phosphatase 84 Creatine Kinase 315 H Creatine Kinase Index 1.2 CK-MB (CK-2) 3.9 H Troponin I < 0.02 B-Natriuretic Peptide 30.0 Total Protein 7.0 Albumin 3.7 Urine Color Yellow Urine Appearance Clear Urine pH 6.5 Ur Specific [place] 1.014 Urine Protein Negative Urine Glucose (UA) Negative Urine Ketones Negative Urine Blood Negative Urine Nitrite Negative Urine Bilirubin Negative Urine Urobilinogen 0.2 Ur Leukocyte Esterase Negative 10/19/19 10:40 PT with INR 12.40 INR 1.05 PTT (Actin FS) 39.2 H Sodium Potassium Chloride Carbon Dioxide Anion Gap BUN Creatinine Est GFR (CKD-EPI)AfAm Est GFR (CKD-EPI)NonAf Random Glucose Calcium Magnesium Total Bilirubin AST ALT Alkaline Phosphatase Creatine Kinase Creatine Kinase Index CK-MB (CK-2) Troponin I B-Natriuretic Peptide Total Protein Albumin Urine Color Urine Appearance Urine pH Ur Specific [place] Urine Protein Urine Glucose (UA) Urine Ketones Urine Blood Urine Nitrite Urine Bilirubin Urine Urobilinogen Ur Leukocyte Esterase 10/19/19 10:40 RBC 4.91 MCV 85.0 MCHC 33.6 RDW 13.7 MPV 7.4 L Neutrophils % 54.0 Lymphocytes % 32.2 D Monocytes % 10.6 H Eosinophils % 2.3 Basophils % 0.9 - RADIOLOGY Radiology Studies Ordered: Category Date Time Status CHEST X-RAY PORTABLE* [RAD] Stat Radiology 10/19/19 10:30 Completed - Medications Given in the ED: ED Medications Discontinued Medications Generic Name Dose Route Start Last Admin Trade Name Freq PRN Reason Stop Dose Admin Aspirin 162 mg 10/19/19 10:29 10/19/19 10:58 Asa - PO 10/19/19 10:30 162 mg ONCE ONE Administration Medical Decision Making - Medical Decision Making Todd Ordaz is a 59 yo M w a hx HTN, HLD, RASHEED (3 stents), CABG 09/08/16, NIDDM, Prostate Ca, Chronic knee pain, and GERD who presents to the [facility] er with on and off left sided chest pain associated with SOB for the past 2 days. He states the chest discomfort occasionally radiates down his left arm but he is not feeling the pain at the present time. The patient is not sure if the pain is worsened with physical activity. He denies any nausea, vomiting, or diaphoresis. He had an ECHO in january 2018 which suggested a diastolic filling abnormality, mild septal hypertrophy, left and right atrial dilatation, aortic regurg, thickened mitral valves, calcified aortic valves, Mitral + tricuspid + pulm regurg, and Pulm HTN. His stress EKG at the time was unremarkable. Denies recent travel, cough, hemoptysis, hormone usage, personal or family hx of blood clots, cancer in the past 6 months, recent fevers, chills, or infections. Vital Signs Temp Pulse Resp BP Pulse Ox 98.1 F 58 L 19 126/63 97 10/19/19 09:44 10/19/19 09:44 10/19/19 09:44 10/19/19 09:44 10/19/19 09:44 DDx IBNLT: ACS/OK, electrolyte/metabolic disturbance, pneumothorax, PNA, heart failure, PE, anemia, Angina Plan: Labs, Urine, CXR, EKG, Cardiac consult, re-assess, likely admission to Tele Obs given Heart score of 5 and strong cardiac history. Labs: Mildly elevated CK and CKMB CXR: Unremarkable EKG: See EKG and HEART score section Cardiac Consult: Dr. olivera - Dr. quispe covering Dispo: Admit to telemetry obs for stress test, echocardiogram, and cardiac monitoring Discharge - Discharge Information Problems reviewed: Yes Clinical Impression/Diagnosis: CAD (coronary artery disease) Qualifiers: Coronary Disease-Associated Artery/Lesion type: unspecified vessel or lesion type [place] vs. transplanted heart: unspecified whether [place] or transplanted heart Associated angina: with unspecified angina Qualified Code(s): I25.119 - Atherosclerotic heart disease of [place] coronary artery with unspecified angina pectoris Chest pain Qualifiers: Chest pain type: unspecified Qualified Code(s): R07.9 - Chest pain, unspecified Condition: Stable - Admission Yes - Follow up/Referral - Patient Discharge Instructions - Post Discharge Activity
[2019-10-19] MEDS ORDERED: ASPIRIN 81 MG CHEWABLE TABLETS ONE (10:36)
--- NOTE | 2019-10-19 10:46 | PDOC ---
Attending Attestation - Resident Resident Name: Kelechi Palmer - ED Attending Attestation I have performed the following: I have examined & evaluated the patient, The case was reviewed & discussed with the resident, I agree w/resident's findings & plan, Exceptions are as noted - HPI HPI: 10/19/19 10:45 59 yo M h/o CAD, CABG stents x 3, htn hld, here with chest pain. Patient states over the last 2 to 3 days he has been having more exertional shortness of breath than usual noticed he feels short of breath with going up a few steps. Denies any orthopnea or PND no recent leg swelling. Yesterday he felt an annoying sort of sensation in his left chest thought maybe it was gas that is why he did not come sooner but today started having achiness and tingling sensation in his left arm which prompted to come in addition to nausea. 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 10/19/19 11:12 - Physicial Exam PE: 10/19/19 11:13 Awake alert no acute distress lungs are clear bilaterally heart is regular without murmurs rubs or gallops abdomen soft nontender no pulsatile masses noted. Pulses are symmetric 2+ radial and DP pulses bilaterally. Tremors are warm and well-perfused there is no appreciated edema no calf tenderness. Neurologically the patient is awake alert and oriented x3 moves all 4 extremities skin is warm and dry - Medical Decision Making 10/19/19 11:14 59-year-old male history of CAD hypertension CABG stents hypertension the hyperlipidemia here with intermittent chest pain exertional dyspnea nausea and left arm paresthesias. Symptoms are concerning for possible CHF and angina and additional differential includes dehydration and anemia electrolyte abnormalities infection such as pneumonia or CHF is possible so plan chest x- ray EKG troponin patient was given 162 mg of aspirin. States he did not take his home medications prior to arrival pending blood pressure we will give him his home meds and consult his rosin barrel filler will likely require admission to rule out ACS due to high risk factors to telemetry transfer text 10/19/19 12:44 pt labs negative troponin, but CKMB positive , ekg unchanged with TWI V2 and V3. rate 51 bpm. cxr negative. d/w dr tamez, will admit to telemetry due to risk factors. Heart Score/ECG Review #1 General ECG Interpretation: Sinus Rhythm, Normal Intervals, No acute ischemic changes Compared to previous ECG there are: No significant change (comparison 10/10/18 sinus bradycardia 51 bpm. TWI v2/ v3)
[2019-10-19 11:07] LABS: BASO % 0.9 % (0-2.0); EOS % 2.3 % (0-4.5); HEMATOCRIT 41.7 % (35.4-49); LYMPH % 32.2 % (8-40); MCH 28.6 pg (25.7-33.7); MCHC 33.6 g/dl (32.0-35.9); MEAN PLT VOLUME 7.4 fl (7.5-11.1); MONO % 10.6 % (3.8-10.2); PLATELET COUNT 216 K/MM3 (134-434); RBC 4.91 M/mm3 (4.00-5.60); RDW 13.7 % (11.9-15.9); WHITE BLOOD COUNT 4.2 K/mm3 (4.0-10.0)
[2019-10-19 11:20] LABS: INR 1.05 (0.83-1.09); PROTHROMBIN TIME (PATIENT) 12.4 SEC (9.7-13.0)
[2019-10-19 11:22] LABS: ACTIVATED PTT 39.2 SECONDS (25.2-36.5)
[2019-10-19 11:39] LABS: ALBUMIN 3.7 g/dl (3.4-5.0); BILIRUBIN,TOTAL 0.6 mg/dL (0.2-1); BLOOD UREA NITROGEN 11.5 mg/dL (7-18); CALCIUM 9.1 mg/dL (8.5-10.1); CREATININE 0.8 mg/dL (0.55-1.3)
[2019-10-19 11:40] LABS: PH,URINE 6.5 (5.0-8.0); URINE APPEARANCE CLEAR; URINE BILIRUBIN NEGATIVE (NEGATIVE); URINE COLOR YELLOW; URINE GLUCOSE (UA) NEGATIVE (NEGATIVE); URINE KETONE NEGATIVE (NEGATIVE); URINE LEUK ESTERASE NEGATIVE (NEGATIVE); URINE NITRITE NEGATIVE (NEGATIVE); URINE PROTEIN NEGATIVE (NEGATIVE); URINE UROBILINOGEN 0.2 mg/dL (0.2-1.0)
[2019-10-19 11:43] LABS: MAGNESIUM 2.4 mg/dL (1.8-2.4)
--- NOTE | 2019-10-19 12:20 | CON.CARD ---
Consult Consult Specialty:: Cardiology - History of Present Illness History of Present Illness: kaila Ordaz is a 59 yo M w a hx HTN, HLD, RASHEED (3 stents), CABG 09/08/16, NIDDM, Prostate Ca, Chronic knee pain, and GERD who presents to the [facility] er with on and off left sided chest pain associated with SOB for the past 2 days. He states the chest discomfort occasionally radiates down his left arm but he is not feeling the pain at the present time. The patient is not sure if the pain is worsened with physical activity. He denies any nausea, vomiting, or diaphoresis. He had an ECHO in january 2018 which suggested a diastolic filling abnormality, mild septal hypertrophy, left and right atrial dilatation, aortic regurg, thickened mitral valves, calcified aortic valves, Mitral + tricuspid + pulm regurg, and Pulm HTN. His stress EKG at the time was unremarkable. Denies recent travel, cough, hemoptysis, hormone usage, personal or family hx of blood clots, cancer in the past 6 months, recent fevers, chills, or infections. PCP: Ben Conn Allergies: NKA, NKDA PSH: Stents, CABG Social hx: Denies smoking, drinking, or other substance abuse PMH Prostate CA diagnosed 2018 "mild COPD"/"mild" asthma (sees Dr. Ocasio) CAD (? s/p septal and apical MT): mid-LCx and distal RCA stents 09/28; mid-LCx JEREMIAH 02/15/09 S/p CABG 09/08/2016 chronic Rt knee and hip pain GERD HTN hx [facility] Spotted Fever several years ago (treated) hyperlipidemia Mild-moderate bilateral carotid artery diffuse intimal thickening (01/29) - History Source History Provided By: Patient, Medical Record - Past Medical History Cardio/Vascular: Yes: CAD, Hyperlipdemia Renal/: Yes: Cancer (prostate) - Past Surgical History Past Surgical History: Yes: CABG - Alcohol/Substance Use Hx Alcohol Use: No History of Substance Use: reports: None - Smoking History Smoking history: Never smoked Have you smoked in the past 12 months: No Aproximately how many cigarettes per day: 10 If you are a former smoker, when did you quit?: 4 years ago - Social History ADL: Independent History of Recent Travel: No Home Medications - Allergies Allergies/Adverse Reactions: Allergies Allergy/AdvReac Type Severity Reaction Status Date / Time No Known Allergies Allergy Verified 10/19/19 09:46 - Home Medications Home Medications: Ambulatory Orders Aspirin [ASA -] 81 mg PO DAILY 12/02/12 [place]-3 Acid Ethyl Esters [Lovaza -] 1,000 mg PO BID 03/07/14 Cholecalciferol (Vitamin D3) [D3-2000] 1,000 unit PO DAILY 02/12/15 Folic Acid/Mv,Fe,Min [Centrum Multivitamin Tab Chew] 1 each PO DAILY 02/12/15 Ranitidine [Zantac -] 300 mg PO BID PRN 02/12/15 Atorvastatin Calcium 80 mg PO HS 09/11/18 Metoprolol Succinate [Toprol Xl] 50 mg PO DAILY 09/11/18 Silodosin [Rapaflo] 8 mg PO HS 10/10/18 Review of Systems - Review of Systems Constitutional: reports: No Symptoms Eyes: reports: No Symptoms HENT: reports: No Symptoms Neck: reports: No Symptoms Cardiovascular: reports: Chest Pain Respiratory: reports: No Symptoms Gastrointestinal: reports: No Symptoms Genitourinary: reports: No Symptoms Breasts: reports: No Symptoms Reported Musculoskeletal: reports: No Symptoms Integumentary: reports: No Symptoms Neurological: reports: No Symptoms Endocrine: reports: No Symptoms Hematology/Lymphatic: reports: No Symptoms Psychiatric: reports: No Symptoms Vital Signs: Vital Signs Temperature 98.1 F 10/19/19 09:44 Pulse Rate 58 L 10/19/19 09:44 Respiratory Rate 10/19/19 09:44 Blood Pressure 126/63 10/19/19 09:44 O2 Sat by Pulse Oximetry (%) 100 10/19/19 11:04 Constitutional: Yes: Well Nourished, No Distress, Calm Eyes: Yes: WNL, Conjunctiva Clear, EOM Intact HENT: Yes: WNL, Atraumatic, Normocephalic Neck: Yes: WNL, Supple, Trachea Midline Respiratory: Yes: WNL, Regular, CTA Bilaterally Gastrointestinal: Yes: WNL, Normal Bowel Sounds Renal/: Yes: WNL Cardiovascular: Yes: WNL, Regular Rate and Rhythm Musculoskeletal: Yes: WNL Extremities: Yes: WNL Integumentary: Yes: WNL Neurological: Yes: WNL, Alert, Oriented ...Motor Strength: WNL Psychiatric: Yes: WNL, Alert, Oriented - Other Data Labs, Other Data: CBC, BMP 10/19/19 10:40 10/19/19 10:40 INR, PTT INR 1.05 (0.83-1.09) 10/19/19 10:40 Troponin, BNP 10/19/19 10:40 Troponin I < 0.02 B-Natriuretic Peptide 30.0 Troponin, BNP 10/19/19 10:40 Troponin I < 0.02 B-Natriuretic Peptide 30.0 Imaging - Results Chest X-ray: Image Reviewed (no i/e) EKG: Pending Problem List - Problems (1) CAD (coronary artery disease) Code(s): I25.10 - ATHSCL HEART DISEASE OF [place] CORONARY ARTERY W/O ANG PCTRS Qualifiers: Coronary Disease-Associated Artery/Lesion type: unspecified vessel or lesion type [place] vs. transplanted heart: unspecified whether [place] or transplanted heart Associated angina: with unspecified angina Qualified Code (s): I25.119 - Atherosclerotic heart disease of [place] coronary artery with unspecified angina pectoris (2) Chest pain Code(s): R07.9 - CHEST PAIN, UNSPECIFIED Qualifiers: Chest pain type: unspecified Qualified Code(s): R07.9 - Chest pain, unspecified (3) Dyspnea and respiratory abnormalities Code(s): R06.00 - DYSPNEA, UNSPECIFIED; R06.89 - OTHER ABNORMALITIES OF BREATHING (4) Dyspnea on exertion Code(s): R06.09 - OTHER FORMS OF DYSPNEA (5) FH: CABG (coronary artery bypass surgery) Code(s): Z82.49 - FAMILY HX OF ISCHEM HEART DIS AND OTH DIS OF THE CIRC SYS (6) HLD (hyperlipidemia) Code(s): E78.5 - HYPERLIPIDEMIA, UNSPECIFIED (7) Hx of CABG Code(s): Z95.1 - PRESENCE OF AORTOCORONARY BYPASS GRAFT (8) Prostate CA Code(s): C61 - MALIGNANT NEOPLASM OF PROSTATE (9) Shortness of breath Code(s): R06.02 - SHORTNESS OF BREATH (10) Tingling of both feet Code(s): R20.2 - PARESTHESIA OF SKIN Assessment/Plan HTN, HLD, RASHEED (3 stents), CABG 09/08/16, NIDDM, Prostate Ca, Chronic knee pain, and GERD who presents to the [facility] er with on and off left sided chest pain associated with SOB for the past 2 days. Plan asa bb ekg echo r/o MT telemetry MIB st
--- NOTE | 2019-10-19 14:54 | EKG ---
Test Reason : Blood Pressure : / mmHG Vent. Rate : 051 BPM Atrial Rate : 051 BPM P-R Int : 206 ms QRS Dur : 106 ms QT Int : 434 ms P-R-T Axes : 014 039 043 degrees QTc Int : 400 ms SINUS BRADYCARDIA CANNOT RULE OUT ANTERIOR INFARCT , AGE UNDETERMINED ABNORMAL ECG WHEN COMPARED WITH ECG OF 10-OCT-2018 15:57, VENT. RATE HAS DECREASED BY 30 BPM Confirmed by CAR TOMLINSON, YOAV ([id number]) on 10/19/2019 2:54:15 PM Referred By: Confirmed By:YOAV YOON MD
--- NOTE | 2019-10-19 16:30 | ECHO ---
Name: DANNI GIORDANO Exam:Adult Echocardiogram Study Date: 10/19/2019 02:36 PM Age: 59 yrs MMode/2D Measurements & Calculations IVSd: 0.74 cm Ao root diam: 2.9 cm LVIDd: 4.5 cm LA dimension: 3.7 cm LVIDs: 3.0 cm LVPWd: 0.85 cm LVPWs: 1.2 cm EDV(Teich): 91.9 ml ESV(Teich): 36.3 ml LVOT diam: 1.9 cm LAV (MOD-bp): 64.7 ml RV S Varun: 8.8 cm/sec Doppler Measurements & Calculations MV E max varun: 90.7 cm/sec Ao V2 max: 131.9 cm/sec MV A max varun: 49.0 cm/sec Ao max P.0 mmHg MV E/A: 1.9 MV dec time: 0.26 sec MR max varun: 491.5 cm/sec PA V2 max: 126.2 cm/sec MR max P.6 mmHg PA max P.7 mmHg Med Peak E' Varun: 7.0 cm/sec Med E/e': 13.0 Lat Peak E' Varun: 7.9 cm/sec Lat E/e': 11.4 Procedure A two-dimensional transthoracic echocardiogram with color flow and Doppler was performed. Left Ventricle The left ventricular size, thickness and function are normal. The left ventricular ejection fraction is normal. The transmitral spectral Doppler flow pattern is normal for age. The left ventricular wall mo tion is normal. Right Ventricle The right ventricle is normal in size and function. Atria Normal left and right atrial size and function. Mitral Valve There is mild mitral valve thickening. There is no mitral valve stenosis. There is mild mitral regurg itation. Tricuspid Valve There is mild tricuspid valve thickening. There is no tricuspid stenosis. There was insufficient TR d etected to calculate RV systolic pressure. Aortic Valve The aortic valve is not well visualized. No hemodynamically significant valvular aortic stenosis. No aortic regurgitation is present. Pulmonic Valve The pulmonic valve is not well visualized. There is no pulmonic valvular stenosis. Mild pulmonic valv ular regurgitation. Great Vessels The aortic root is normal size. Pericardium/Pleura There is no pericardial effusion. Interpretation Summary The left ventricular size, thickness and function are normal The left ventricular ejection fraction is normal. The left ventricular wall motion is normal. There is mild mitral regurgitation. Mild pulmonic valvular regurgitation. There was insufficient TR detected to calculate RV systolic pressure. The transmitral spectral Doppler flow pattern is normal for age. MD Owen Dorman 10/19/2019 04:30 PM
[2019-10-19 16:46] VITALS: BMI 28.6
[2019-10-19] MEDS: ASPIRIN 81 MG CHEWABLE TABLETS PO SCH (18:58)
[2019-10-19] MEDS: CHOLECALCIFEROL (VIT D3) 1,000 UNIT (25 MCG) TABLET PO SCH (18:58)
[2019-10-19] MEDS: ATORVASTATIN CA 80 MG TABLET (FP) PO SCH (21:40)
[2019-10-19] MEDS: OMEGA-3 ACID ETHYL ESTERS (FATTY-ACIDS) 1 GM CAPSULE (FP) PO SCH (21:40)
[2019-10-20] MEDS: TAMSULOSIN HCL 0.4 MG CAP PO SCH (10:24)
[2019-10-20] MEDS: CHOLECALCIFEROL (VIT D3) 1,000 UNIT (25 MCG) TABLET PO SCH (10:24)
[2019-10-20] MEDS: ASPIRIN 81 MG CHEWABLE TABLETS PO SCH (10:24)
[2019-10-20] MEDS: MULTIVITAMINS THER W-MINERALS COMBO TABLET (FP) PO SCH (10:24)
[2019-10-20] MEDS: OMEGA-3 ACID ETHYL ESTERS (FATTY-ACIDS) 1 GM CAPSULE (FP) PO SCH ×2 (10:24→21:32)
--- NOTE | 2019-10-20 10:25 | PN ---
Progress Note, Physician Chief Complaint: Cardiology for Dr. Dorman History of Present Illness: Denies further chest pain or dyspnea, no events on telemetry. - Current Medication List Current Medications: Active Medications Aspirin (Asa -) 81 mg PO DAILY [facility] Last Admin: 10/19/19 18:58 Dose: Not Given Atorvastatin Calcium (Lipitor -) 80 mg PO HS [facility] Last Admin: 10/19/19 21:40 Dose: 80 mg Cholecalciferol (Vitamin D3 -) 1,000 unit PO DAILY [facility] Last Admin: 10/19/19 18:58 Dose: Not Given Metoprolol Succinate (Toprol Xl -) 50 mg PO DAILY [facility] Multivitamins/Minerals (Theragran-M) 1 each PO DAILY [facility] Jwjzm-[id number] Ethyl Esters (Lovaza -) 1 gm PO BID [facility] Last Admin: 10/19/19 21:40 Dose: 1 gm Tamsulosin HCl (Flomax -) 0.4 mg PO DAILY@0830 [facility] - Objective Vital Signs: Vital Signs Temperature 97.8 F 10/20/19 05:58 Pulse Rate 67 10/20/19 05:58 Respiratory Rate 18 10/20/19 05:58 Blood Pressure 116/78 10/20/19 05:58 O2 Sat by Pulse Oximetry (%) 93 L 10/20/19 01:22 Constitutional: Yes: No Distress, Calm Neck: Yes: Supple Cardiovascular: Yes: Regular Rate and Rhythm Respiratory: Yes: Regular, CTA Bilaterally Gastrointestinal: Yes: Normal Bowel Sounds, Soft Edema: No Labs: CBC, BMP 10/19/19 10:40 10/19/19 10:40 INR, PTT INR 1.05 (0.83-1.09) 10/19/19 10:40 - ....Imaging EKG: Report Reviewed (Tele: NSR) Assessment/Plan 10/19/2019 Echo: Normal LV and RV size and fxn, mild MR, [place] - Problems (1) CAD (coronary artery disease) Code(s): I25.10 - ATHSCL HEART DISEASE OF [place] CORONARY ARTERY W/O ANG PCTRS Qualifiers: Coronary Disease-Associated Artery/Lesion type: unspecified vessel or lesion type [place] vs. transplanted heart: unspecified whether [place] or transplanted heart Associated angina: with unspecified angina Qualified Code (s): I25.119 - Atherosclerotic heart disease of [place] coronary artery with unspecified angina pectoris (2) Chest pain Code(s): R07.9 - CHEST PAIN, UNSPECIFIED Qualifiers: Chest pain type: unspecified Qualified Code(s): R07.9 - Chest pain, unspecified (3) Dyspnea and respiratory abnormalities Code(s): R06.00 - DYSPNEA, UNSPECIFIED; R06.89 - OTHER ABNORMALITIES OF BREATHING (4) Dyspnea on exertion Code(s): R06.09 - OTHER FORMS OF DYSPNEA (5) FH: CABG (coronary artery bypass surgery) Code(s): Z82.49 - FAMILY HX OF ISCHEM HEART DIS AND OTH DIS OF THE CIRC SYS (6) HLD (hyperlipidemia) Code(s): E78.5 - HYPERLIPIDEMIA, UNSPECIFIED (7) Hx of CABG Code(s): Z95.1 - PRESENCE OF AORTOCORONARY BYPASS GRAFT (8) Prostate CA Code(s): C61 - MALIGNANT NEOPLASM OF PROSTATE (9) Shortness of breath Code(s): R06.02 - SHORTNESS OF BREATH (10) Tingling of both feet Code(s): R20.2 - PARESTHESIA OF SKIN Assessment/Plan HTN, HLD, RASHEED (3 stents), CABG 09/08/16, NIDDM, Prostate Ca, Chronic knee pain, and GERD who presents to the [facility] er with on and off left sided chest pain associated with SOB for the past 2 days. Plan 1. Continue Asa 81 qd, Toprol XL 50 qd, Lipitor 80 qd, Lovaza 1 bid 2. Reviewed echo, r/o [place], telemetry monitoring 3. F/u stress MIBI
--- NOTE | 2019-10-20 11:03 | HP ---
Admitting History and Physical - Admission History of Present Illness: 59 yo M h/o CAD, CABG stents x 3, htn hld, here with chest pain. Patient states over the last 2 to 3 days he has been having more exertional shortness of breath than usual noticed he feels short of breath with going up a few steps. Denies any orthopnea or PND no recent leg swelling. Yesterday he felt an annoying sort of sensation in his left chest thought maybe it was gas that is why he did not come sooner but today started having achiness and tingling sensation in his left arm which prompted to come in addition to nausea. 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 History Source: Patient, Medical Record Limitations to Obtaining History: No Limitations - Past Medical History Cardiovascular: Yes: CAD, Hyperlipdemia Renal/: Yes: Cancer (prostate) - Past Surgical History Past Surgical History: Yes: CABG - Smoking History Smoking history: Former smoker Have you smoked in the past 12 months: No Aproximately how many cigarettes per day: 10 If you are a former smoker, when did you quit?: 4 years ago - Alcohol/Substance Use Hx Alcohol Use: No History of Substance Use: reports: None - Social History ADL: Independent History of Recent Travel: No Home Medications - Allergies Allergies/Adverse Reactions: Allergies Allergy/AdvReac Type Severity Reaction Status Date / Time No Known Allergies Allergy Verified 10/19/19 09:46 - Home Medications Home Medications: Ambulatory Orders Aspirin [ASA -] 81 mg PO DAILY 12/02/12 [place]-3 Acid Ethyl Esters [Lovaza -] 1,000 mg PO BID 03/07/14 Cholecalciferol (Vitamin D3) [D3-2000] 1,000 unit PO DAILY 02/12/15 Folic Acid/Mv,Fe,Min [Centrum Multivitamin Tab Chew] 1 each PO DAILY 02/12/15 Ranitidine [Zantac -] 300 mg PO BID PRN 02/12/15 Atorvastatin Calcium 80 mg PO HS 09/11/18 Metoprolol Succinate [Toprol Xl] 50 mg PO DAILY 09/11/18 Silodosin [Rapaflo] 8 mg PO HS 10/10/18 Review of Systems - Review of Systems Constitutional: denies: Diaphoresis Eyes: reports: No Symptoms HENT: reports: No Symptoms Neck: reports: No Symptoms Cardiovascular: reports: Chest Pain, Shortness of Breath Respiratory: denies: Exercise Intolerance Gastrointestinal: reports: No Symptoms Genitourinary: reports: No Symptoms Breasts: reports: No Symptoms Reported Musculoskeletal: reports: No Symptoms Integumentary: reports: No Symptoms Neurological: reports: Parasthesia (left shoulder / arm) Endocrine: reports: No Symptoms Hematology/Lymphatic: reports: No Symptoms Psychiatric: reports: No Symptoms Physical Examination Vital Signs: Vital Signs Temperature 97.8 F 10/20/19 05:58 Pulse Rate 67 10/20/19 05:58 Respiratory Rate 18 10/20/19 05:58 Blood Pressure 116/78 10/20/19 05:58 O2 Sat by Pulse Oximetry (%) 93 L 10/20/19 01:22 Constitutional: Yes: Well Nourished, No Distress, Calm Eyes: Yes: Conjunctiva Clear, EOM Intact HENT: Yes: Atraumatic, Normocephalic Neck: Yes: Supple, Trachea Midline Cardiovascular: Yes: Regular Rate and Rhythm Respiratory: Yes: Regular, CTA Bilaterally Gastrointestinal: Yes: Normal Bowel Sounds, Soft ...Rectal Exam: Yes: Deferred Renal/: Yes: WNL Breast(s): Yes: WNL Musculoskeletal: Yes: WNL Extremities: Yes: WNL Edema: No Peripheral Pulses WNL: Yes Neurological: Yes: WNL, Alert, Oriented ...Motor Strength: WNL Psychiatric: Yes: WNL Labs: CBC, BMP 10/19/19 10:40 10/19/19 10:40 Problem List - Problems (1) CAD (coronary artery disease) Code(s): I25.10 - ATHSCL HEART DISEASE OF [place] CORONARY ARTERY W/O ANG PCTRS Qualifiers: Coronary Disease-Associated Artery/Lesion type: unspecified vessel or lesion type [place] vs. transplanted heart: unspecified whether [place] or transplanted heart Associated angina: with unspecified angina Qualified Code (s): I25.119 - Atherosclerotic heart disease of [place] coronary artery with unspecified angina pectoris (2) Chest pain Code(s): R07.9 - CHEST PAIN, UNSPECIFIED Qualifiers: Chest pain type: unspecified Qualified Code(s): R07.9 - Chest pain, unspecified (3) Dyspnea and respiratory abnormalities Code(s): R06.00 - DYSPNEA, UNSPECIFIED; R06.89 - OTHER ABNORMALITIES OF BREATHING (4) FH: CABG (coronary artery bypass surgery) Code(s): Z82.49 - FAMILY HX OF ISCHEM HEART DIS AND OTH DIS OF THE CIRC SYS (5) HLD (hyperlipidemia) Code(s): E78.5 - HYPERLIPIDEMIA, UNSPECIFIED (6) Hx of CABG Code(s): Z95.1 - PRESENCE OF AORTOCORONARY BYPASS GRAFT (7) Prostate CA Code(s): C61 - MALIGNANT NEOPLASM OF PROSTATE
[2019-10-20] MEDS: ATORVASTATIN CA 80 MG TABLET (FP) PO SCH (21:32)
[2019-10-21 07:43] LABS: BASO % 0.7 % (0-2.0); EOS % 2.1 % (0-4.5); HEMATOCRIT 43.6 % (35.4-49); LYMPH % 26.2 % (8-40); MCH 29.4 pg (25.7-33.7); MCHC 34.5 g/dl (32.0-35.9); MEAN CELL VOLUME 85.1 fl (80-96); MONO % 8.6 % (3.8-10.2); NEUT % 62.4 % (42.8-82.8); PLATELET COUNT 230 K/MM3 (134-434); RBC 5.12 M/mm3 (4.00-5.60); RDW 13.6 % (11.9-15.9); WHITE BLOOD COUNT 4.8 K/mm3 (4.0-10.0)
[2019-10-21 08:02] LABS: CALCIUM 8.8 mg/dL (8.5-10.1); CREATININE 0.9 mg/dL (0.55-1.3); POTASSIUM 4.2 mmol/L (3.5-5.1)
--- NOTE | 2019-10-21 10:48 | PN ---
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 - Current Medication List Current Medications: Active Medications Aspirin (Asa -) 81 mg PO DAILY [facility] Last Admin: 10/20/19 10:24 Dose: 81 mg Atorvastatin Calcium (Lipitor -) 80 mg PO HS [facility] Last Admin: 10/20/19 21:32 Dose: 80 mg Cholecalciferol (Vitamin D3 -) 1,000 unit PO DAILY [facility] Last Admin: 10/20/19 10:24 Dose: 1,000 unit Metoprolol Succinate (Toprol Xl -) 50 mg PO DAILY [facility] Last Admin: 10/20/19 10:24 Dose: 50 mg Multivitamins/Minerals (Theragran-M) 1 each PO DAILY [facility] Last Admin: 10/20/19 10:24 Dose: 1 each [id number] Ethyl Esters (Lovaza -) 1 gm PO BID [facility] Last Admin: 10/20/19 21:32 Dose: 1 gm Tamsulosin HCl (Flomax -) 0.4 mg PO DAILY@0830 [facility] Last Admin: 10/20/19 10:24 Dose: 0.4 mg - Objective Vital Signs: Vital Signs Temperature 97.8 F 10/21/19 05:54 Pulse Rate 67 10/21/19 05:54 Respiratory Rate 20 10/21/19 05:54 Blood Pressure 137/59 L 10/21/19 05:54 O2 Sat by Pulse Oximetry (%) 95 10/21/19 02:00 Constitutional: Yes: No Distress, Calm, Thin Neck: Yes: Supple Cardiovascular: Yes: Regular Rate and Rhythm Respiratory: Yes: Regular, CTA Bilaterally Gastrointestinal: Yes: Normal Bowel Sounds, Soft Edema: No Labs: CBC, BMP 10/21/19 06:17 10/21/19 06:17 INR, PTT INR 1.05 (0.83-1.09) 10/19/19 10:40 Problem List - Problems (1) S/P coronary artery stent placement Code(s): Z95.5 - PRESENCE OF CORONARY ANGIOPLASTY IMPLANT AND GRAFT (2) Abnormal exercise myocardial perfusion study Code(s): R94.39 - ABNORMAL RESULT OF OTHER CARDIOVASCULAR FUNCTION STUDY Assessment/Plan 10/19/2019 Echo: Normal LV and RV size and fxn, mild MR, AL 10/21/2019 Nuc Stress: Mild-moderate apical, anterior ischemia, mild basal inferior ischemia, normal LVEF 55%, no TID - Problems (1) CAD (coronary artery disease) Code(s): I25.10 - ATHSCL HEART DISEASE OF [place] CORONARY ARTERY W/O ANG PCTRS Qualifiers: Coronary Disease-Associated Artery/Lesion type: unspecified vessel or lesion type [place] vs. transplanted heart: unspecified whether [place] or transplanted heart Associated angina: with unspecified angina Qualified Code (s): I25.119 - Atherosclerotic heart disease of [place] coronary artery with unspecified angina pectoris (2) Chest pain Code(s): R07.9 - CHEST PAIN, UNSPECIFIED Qualifiers: Chest pain type: unspecified Qualified Code(s): R07.9 - Chest pain, unspecified (3) Dyspnea and respiratory abnormalities Code(s): R06.00 - DYSPNEA, UNSPECIFIED; R06.89 - OTHER ABNORMALITIES OF BREATHING (4) Dyspnea on exertion Code(s): R06.09 - OTHER FORMS OF DYSPNEA (5) FH: CABG (coronary artery bypass surgery) Code(s): Z82.49 - FAMILY HX OF ISCHEM HEART DIS AND OTH DIS OF THE CIRC SYS (6) HLD (hyperlipidemia) Code(s): E78.5 - HYPERLIPIDEMIA, UNSPECIFIED (7) Hx of CABG Code(s): Z95.1 - PRESENCE OF AORTOCORONARY BYPASS GRAFT (8) Prostate CA Code(s): C61 - MALIGNANT NEOPLASM OF PROSTATE (9) Shortness of breath Code(s): R06.02 - SHORTNESS OF BREATH (10) Tingling of both feet Code(s): R20.2 - PARESTHESIA OF SKIN Assessment/Plan HTN, HLD, RASHEED (mid-LCx and distal RCA stents 09/28; mid-LCx JEREMIAH 02/15/09), CABG 09/08/16, NIDDM, Prostate Ca, Chronic knee pain, and GERD who presents to the [facility] er with on and off left sided chest pain associated with SOB. Plan 1. Continue Asa 81 qd, Toprol XL 50 qd, Lipitor 80 qd, Lovaza 1 bid 2. Reviewed echo, nuc stress testing showing ischemia, plan for optimal medical therapy with addition of Norvasc 2.5 qd, march d/c with f/u with Dr. Baxter, d /w Dr. Morales.
[2019-10-21] MEDS: OMEGA-3 ACID ETHYL ESTERS (FATTY-ACIDS) 1 GM CAPSULE (FP) PO SCH (13:02)
[2019-10-21] MEDS: TAMSULOSIN HCL 0.4 MG CAP PO SCH (13:02)
[2019-10-21] MEDS: CHOLECALCIFEROL (VIT D3) 1,000 UNIT (25 MCG) TABLET PO SCH (13:02)
[2019-10-21] MEDS: MULTIVITAMINS THER W-MINERALS COMBO TABLET (FP) PO SCH (13:02)
[2019-10-21] MEDS: ASPIRIN 81 MG CHEWABLE TABLETS PO SCH (13:03)
--- NOTE | 2019-10-21 14:10 | EKG ---
Test Reason : Blood Pressure : / mmHG Vent. Rate : 051 BPM Atrial Rate : 051 BPM P-R Int : 188 ms QRS Dur : 108 ms QT Int : 444 ms P-R-T Axes : 024 009 031 degrees QTc Int : 409 ms SINUS BRADYCARDIA CANNOT RULE OUT INFERIOR INFARCT , AGE UNDETERMINED NONSPECIFIC T WAVE ABNORMALITY Confirmed by CHRISTIANO WEBB MD ([id number]) on 10/21/2019 2:09:41 PM Referred By: Confirmed By:CHRISTIANO WEBB MD
[2019-10-21] MEDS ORDERED: amLODIPine BESYLATE 2.5 MG TABLET (FP) PO SCH (14:30)
--- NOTE | 2019-10-21 14:36 | DS ---
Physical Examination Vital Signs: Vital Signs Temperature 98.3 F 10/21/19 08:30 Pulse Rate 57 L 10/21/19 08:30 Respiratory Rate 20 10/21/19 08:30 Blood Pressure 119/74 10/21/19 08:30 O2 Sat by Pulse Oximetry (%) 95 10/21/19 08:30 Constitutional: Yes: Well Nourished, No Distress, Calm Eyes: Yes: Conjunctiva Clear, EOM Intact HENT: Yes: Atraumatic, Normocephalic Neck: Yes: Supple, Trachea Midline Cardiovascular: Yes: Regular Rate and Rhythm Respiratory: Yes: CTA Bilaterally Gastrointestinal: Yes: Normal Bowel Sounds, Soft ...Rectal Exam: Yes: Deferred Renal/: Yes: WNL Breast(s): Yes: WNL Musculoskeletal: Yes: WNL Extremities: Yes: WNL Edema: No Peripheral Pulses WNL: Yes Integumentary: Yes: WNL Neurological: Yes: WNL, Alert, Oriented ...Motor Strength: WNL Psychiatric: Yes: Alert, Oriented Labs: CBC, BMP 10/21/19 06:17 10/21/19 06:17 Discharge Summary Problems reviewed: Yes Reason For Visit: CHEST PAIN Current Active Problems Abnormal exercise myocardial perfusion study (Acute) CAD (coronary artery disease) (Acute) Chest pain (Acute) S/P coronary artery stent placement (Acute) Condition: Stable - Instructions Referrals: Ben Conn MD [Primary Care Provider] - Disposition: HOME - Home Medications Comprehensive Discharge Medication List: Ambulatory Orders Aspirin [ASA -] 81 mg PO DAILY 12/02/12 [place]-3 Acid Ethyl Esters [Lovaza -] 1,000 mg PO BID 03/07/14 Cholecalciferol (Vitamin D3) [D3-2000] 1,000 unit PO DAILY 02/12/15 Folic Acid/Mv,Fe,Min [Centrum Multivitamin Tab Chew] 1 each PO DAILY 02/12/15 Ranitidine [Zantac -] 300 mg PO BID PRN 02/12/15 Atorvastatin Calcium 80 mg PO HS 09/11/18 Metoprolol Succinate [Toprol Xl] 50 mg PO DAILY 09/11/18 Silodosin [Rapaflo] 8 mg PO HS 10/10/18 norvasc 2.5 mg q day Prescription Drug Monitoring Program (I-STOP) results: I-STOP not reviewed
[2019-10-21 15:03] VITALS: BP 107/63; PULSE 73; TEMP 98.6
== END 2019-10-21 16:45 | disposition home or self-care (01) ==
LOC: JER 09:38 → JERBED 12:01 → J4W 16:33
PROVIDERS: ADMIT Family Medicine; ATTEND Family Medicine
DX: I25.118 Atherosclerotic heart disease of native coronary artery with other forms of angina pectoris (principal); R06.09 Other forms of dyspnea; R94.39 Abnormal result of other cardiovascular function study; I10 Essential (primary) hypertension; Z95.1 Presence of aortocoronary bypass graft; Z95.5 Presence of coronary angioplasty implant and graft; E78.5 Hyperlipidemia, unspecified; E78.00 Pure hypercholesterolemia, unspecified; E11.9 Type 2 diabetes mellitus without complications; Z79.84 Long term (current) use of oral hypoglycemic drugs; M25.551 Pain in right hip; M25.561 Pain in right knee; G89.29 Other chronic pain; K21.9 Gastro-esophageal reflux disease without esophagitis; Z85.46 Personal history of malignant neoplasm of prostate; Z82.49 Family history of ischemic heart disease and other diseases of the circulatory system; Z86.19 Personal history of other infectious and parasitic diseases; Z87.821 Personal history of retained foreign body fully removed; Z87.891 Personal history of nicotine dependence
CPT/HCPCS: 36415; 71045-TC-FY; 78452-TC; 80048; 80053; 80061; 81003; 82550; 82553; 83036; 83721; 83735; 83880; 84443; 84484; 85025; 85610; 85730; 93005; 93010; 93017; 93306-TC; 99284-25; A9502; G0378